=== PATIENT | female | born 1960 | race Hispanic/Latino ===

== ENCOUNTER → 2023-03-02 | Day surgery (SDC) | payer BC ==
[~2023-03-02] MED LIST: ATORVASTATIN CA40 MG PO; CLARITIN-D 241 EACH PO; CYMBALTA30 MG PO; HYDROCHLOROTHIA25 MG PO; LACTATED RINGER'S 1,000 ML ONE; LIDOCAINE HCL 2% LOCAL INJ 5 ML SDV VIAL INJ ONE; LOSARTAN POTAS100 MG PO; LOSARTAN-HCTZ1 EAC2 PO; METFORMIN HCL500 MG PO; MIDAZOLAM HCL 2 MG/2 ML VIAL ONE; PANTOPRAZOLE SO40 MG PO; PROPOFOL IV EMULSION 10 MG/ML 20 ML VIAL ONE; VITAMIN D PO; VITAMIN D310 MCG PO
[2023-03-02 12:05] VITALS: TEMP 97.8
[2023-03-02 12:20] VITALS: BP 118/74; PULSE 67; RESP 16; O2SAT 100
== END | disposition home or self-care (01) ==
LOC: OR 08:32
PROVIDERS: ATTEND Internal Medicine Gastroenterology
DX: Z12.11 Encounter for screening for malignant neoplasm of colon (principal); Z86.010 Personal history of colon polyps; K29.50 Unspecified chronic gastritis without bleeding; B96.81 Helicobacter pylori [H. pylori] as the cause of diseases classified elsewhere; K31.819 Angiodysplasia of stomach and duodenum without bleeding; K21.9 Gastro-esophageal reflux disease without esophagitis; K44.9 Diaphragmatic hernia without obstruction or gangrene; K57.30 Diverticulosis of large intestine without perforation or abscess without bleeding; K62.89 Other specified diseases of anus and rectum; K59.00 Constipation, unspecified; K64.8 Other hemorrhoids; D64.9 Anemia, unspecified; I10 Essential (primary) hypertension; E78.5 Hyperlipidemia, unspecified; F32.A Depression, unspecified; E11.9 Type 2 diabetes mellitus without complications; F17.200 Nicotine dependence, unspecified, uncomplicated; Z01.810 Encounter for preprocedural cardiovascular examination; Z79.899 Other long term (current) drug therapy; Z80.0 Family history of malignant neoplasm of digestive organs
CPT/HCPCS: 36415; 43239; 45378; 82948; 93005; J2001; J2250; J2704; J7121

== ENCOUNTER → 2023-03-21 | Outpatient (CLI) | payer BC ==
[~2023-03-21] MED LIST changes: -LACTATED RINGER'S 1,000 ML ONE; -LIDOCAINE HCL 2% LOCAL INJ 5 ML SDV VIAL INJ ONE; -MIDAZOLAM HCL 2 MG/2 ML VIAL ONE; -PROPOFOL IV EMULSION 10 MG/ML 20 ML VIAL ONE
== END ==
LOC: MAMMO 14:08
PROVIDERS: ATTEND Family Medicine
DX: Z12.31 Encounter for screening mammogram for malignant neoplasm of breast (principal); M85.88 Other specified disorders of bone density and structure, other site; Z78.0 Asymptomatic menopausal state
CPT/HCPCS: 77067; 77080

== ENCOUNTER 2024-08-29 05:51 | Day surgery (SDC) | payer BC ==
[2024-08-25 09:52] LABS: BASOPHILS % 0.7 % (0.0-1.0); EOSINOPHILS # (AUTO) 0.3 (0.0-0.4); EOSINOPHILS % 5.3 % (0.0-6.0); LYMPHOCYTES # (AUTO) 1.4 (1.0-3.2); LYMPHOCYTES % 25.5 % (18.0-39.1); MEAN CORPUSCULAR HEMOGLOBIN 24.8 pg (28-32); MEAN CORPUSCULAR HGB CONC 27.3 g/dL (31-35); MEAN CORPUSCULAR VOLUME 90.9 fL (81-99); MONOCYTES # (AUTO) 0.6 (0.2-0.8); MONOCYTES % 10.3 % (4.4-11.3); NEUTROPHILS # (AUTO) 3.2 (2.1-6.9); NEUTROPHILS % 57.8 % (38.7-80.0); PLATELET COUNT 407 x10e3/uL (140-360); RED BLOOD COUNT 3.63 x10e6/uL (3.6-5.1); RED CELL DISTRIBUTION WIDTH 15.3 % (11.7-14.4); WHITE BLOOD COUNT 5.45 x10e3/uL (4.8-10.8)
[2024-08-25 10:15] LABS: ALBUMIN 3.8 g/dL (3.5-5.0); ALBUMIN/GLOBULIN RATIO 1.2 (0.8-2.0); ANION GAP 14.3 mmol/L (8-16); BILIRUBIN,TOTAL 0.2 mg/dL (0.2-1.2); CALCIUM 9.3 mg/dL (8.4-10.2); CREATININE, SERUM 0.65 mg/dL (0.57-1.11); POTASSIUM 4.3 mmol/L (3.5-5.1)
[2024-08-25 16:35] LABS: CHOL/HDL RATIO 3.9 (3.0-3.6)
[2024-08-29] VITALS (17 sets, daily range): BP systolic 134–157; BP diastolic 52–70; PULSE 57–73; RESP 10–20; TEMP 96.1; O2SAT 96–99
[~2024-08-29] VITALS: Ht 167.6 cm; Wt 79.8 kg
[~2024-08-29 05:51] MED LIST changes: +FERROUS SU300 MG/51 PO; +JANUVIA100 MG PO; +LOSARTAN-HCTZ1 EAC1; +METFORMIN HCL1000 MG; +METOPROLOL SUCC50 MG PO; +PANTOPRAZOLE SO40 M2 PO
[2024-08-29] MEDS ORDERED: HEPARIN SOD/SOD CHLORIDE 2,000 ML ONE (08:09)
[2024-08-29] MEDS ORDERED: LIDOCAINE HCL 2% LOCAL 20 ML VIAL ONE (08:09)
[2024-08-29] MEDS ORDERED: HEPARIN SOD (PORCINE) 1000 UNIT/ML 30ML ONE (08:09)
[2024-08-29] MEDS ORDERED: IOPAMIDOL 370 MG/ML 100 ML INFUS..BTL INJ ONE (08:10)
[2024-08-29] MEDS ORDERED: SODIUM CHLORIDE 0.9% 1000ML 1,000 ML ONE (08:10)
[2024-08-29] MEDS ORDERED: NITROGLYCERIN/D5W 200 MCG/ML 250 ML ONE (08:10)
[2024-08-29] MEDS ORDERED: MIDAZOLAM HCL 2 MG/2 ML VIAL ONE ×2 (08:11→08:48)
[2024-08-29] MEDS ORDERED: VERAPAMIL HCL 2.5 MG/ML 2 ML VIAL ONE (08:11)
[2024-08-29] MEDS ORDERED: FENTANYL CITRATE/PF 100MCG/2 ML INJ ONE (08:12)
== END 2024-08-29 14:10 | disposition home or self-care (01) ==
LOC: CATH LAB 05:51
PROVIDERS: ATTEND Internal Medicine
DX: I25.118 Atherosclerotic heart disease of native coronary artery with other forms of angina pectoris (principal); R94.39 Abnormal result of other cardiovascular function study; I87.2 Venous insufficiency (chronic) (peripheral); I10 Essential (primary) hypertension; E78.5 Hyperlipidemia, unspecified; E11.9 Type 2 diabetes mellitus without complications; Z01.812 Encounter for preprocedural laboratory examination; Z79.84 Long term (current) use of oral hypoglycemic drugs; Z79.899 Other long term (current) drug therapy; Z68.41 Body mass index [BMI] 40.0-44.9, adult; Z82.49 Family history of ischemic heart disease and other diseases of the circulatory system; Z83.3 Family history of diabetes mellitus
CPT/HCPCS: 36415 ×2; 76937; 80053; 80061; 82948; 85025; 93458; C1760; C1769 ×2; C1887 ×3; J1644; J2003; J2250; J3010; J7030; Q9967; 99152; 99153

== ENCOUNTER 2024-09-25 10:47 | Inpatient (IN) | payer BC ==
[~2024-09-25] VITALS: Ht 167.6 cm; Wt 84.4 kg
[~2024-09-25 10:47] MED LIST changes: -LOSARTAN-HCTZ1 EAC1; +LOSARTAN-HCTZ1 EAC1 PO; -METFORMIN HCL1000 MG; +METFORMIN HCL1000 MG PO
[2024-09-25 11:41] LABS: ANION GAP 14.1 mmol/L (8-16); CALCIUM 8.9 mg/dL (8.4-10.2); CREATININE, SERUM 0.86 mg/dL (0.57-1.11); POTASSIUM 4.1 mmol/L (3.5-5.1)
[2024-09-25 11:47] LABS: TROPONIN I 0.005 ng/mL (0-0.300)
[2024-09-25 12:04] LABS: BASOPHILS # (AUTO) 0.1 (0.0-0.1); BASOPHILS % 0.9 % (0.0-1.0); EOSINOPHILS # (AUTO) 0.2 (0.0-0.4); EOSINOPHILS % 3.5 % (0.0-6.0); HEMATOCRIT 24.1 % (34.2-44.1); LYMPHOCYTES # (AUTO) 0.9 (1.0-3.2); LYMPHOCYTES % 15.8 % (18.0-39.1); MEAN CORPUSCULAR HEMOGLOBIN 24.6 pg (28-32); MEAN CORPUSCULAR HGB CONC 26.6 g/dL (31-35); MEAN CORPUSCULAR VOLUME 92.7 fL (81-99); MONOCYTES # (AUTO) 0.5 (0.2-0.8); MONOCYTES % 8.9 % (4.4-11.3); NEUTROPHILS # (AUTO) 3.8 (2.1-6.9); NEUTROPHILS % 70.5 % (38.7-80.0); PLATELET COUNT 380 x10e3/uL (140-360); RED CELL DISTRIBUTION WIDTH 15.1 % (11.7-14.4); WHITE BLOOD COUNT 5.38 x10e3/uL (4.8-10.8)
[2024-09-25 12:08] LABS: HEMOGLOBIN 6.4 g/dL (12.0-16.0)
[2024-09-25 12:58] VITALS: PULSE 71; RESP 16
[2024-09-25] MEDS ORDERED: ISOSORBIDE MONO30 MG PO (13:39)
[2024-09-25] MEDS ORDERED: FEROSUL325 MG PO (13:39)
[2024-09-25] MEDS ORDERED: VITAMIN D3125 MCG/1 PO (13:39)
[2024-09-25] MEDS ORDERED: RANOLAZINE ER1000 MG PO (13:39)
[2024-09-25 14:48] VITALS: TEMP 98.4
[2024-09-25 14:48] LABS: FERRITIN 18.29 ng/mL (4.63-204.00)
[2024-09-25 14:54] VITALS: BP 169/67; PULSE 71; RESP 18; TEMP 98.4; O2SAT 99
[2024-09-25] MEDS ORDERED: DEXTROSE 50% SYRINGE 50 ML IV PRN (18:00)
[2024-09-25 18:26] VITALS: BP 175/79; PULSE 72; RESP 18; TEMP 98.5; O2SAT 100
[2024-09-25] MEDS: HYDRALAZINE HCL 20 MG/ML VIAL IV PRN (18:45)
[2024-09-25 20:00] VITALS: BP 161/62; PULSE 82; RESP 18; TEMP 98.5; O2SAT 100
[2024-09-25] MEDS: INSULIN LISPRO 100 UNIT/1 ML 3ML VIAL SQ SCH (20:55)
[2024-09-25 21:00] VITALS: BP 161/62; PULSE 82; RESP 18; TEMP 98.5; O2SAT 100
[2024-09-26] VITALS (8 sets, daily range): BP systolic 143–165; BP diastolic 54–69; PULSE 65–85; RESP 18–22; TEMP 97.9–98.5; O2SAT 99–100
[2024-09-26] MEDS: SODIUM CHLORIDE 0.9% 250ML 250 ML IV ONE (09:00)
[2024-09-26] MEDS: SODIUM CHLORIDE 0.9% 250ML 250 ML ONE (09:00)
[2024-09-26] MEDS: PANTOPRAZOLE SODIUM 40 MG SUSPDR.PKT PO SCH (09:40)
[2024-09-26] MEDS: METOPROLOL SUCCINATE 50 MG TAB XL PO SCH (09:42)
[2024-09-26] MEDS: ISOSORBIDE MONONITRATE 30 MG TAB CR PO SCH (09:42)
[2024-09-26] MEDS: HYDROCHLOROTHIAZIDE 25 MG TAB PO SCH (09:42)
[2024-09-26] MEDS: DULOXETINE HCL 30 MG DELAYED RELEASE PO SCH (09:42)
[2024-09-26] MEDS: FERROUS SULFATE 325 MG TAB PO SCH (09:42)
[2024-09-26] MEDS: LOSARTAN POTASSIUM 100 MG TAB PO SCH (09:43)
[2024-09-26 10:34] LABS: BASOPHILS % 0.8 % (0.0-1.0); EOSINOPHILS # (AUTO) 0.2 (0.0-0.4); EOSINOPHILS % 3.6 % (0.0-6.0); HEMATOCRIT 33.5 % (34.2-44.1); HEMOGLOBIN 9.7 g/dL (12.0-16.0); LYMPHOCYTES # (AUTO) 0.8 (1.0-3.2); LYMPHOCYTES % 15.4 % (18.0-39.1); MEAN CORPUSCULAR VOLUME 89.8 fL (81-99); MONOCYTES # (AUTO) 0.4 (0.2-0.8); MONOCYTES % 6.9 % (4.4-11.3); NEUTROPHILS # (AUTO) 3.8 (2.1-6.9); NEUTROPHILS % 73.1 % (38.7-80.0); PLATELET COUNT 307 x10e3/uL (140-360); RED BLOOD COUNT 3.73 x10e6/uL (3.6-5.1); WHITE BLOOD COUNT 5.25 x10e3/uL (4.8-10.8)
[2024-09-26 11:19] LABS: ALBUMIN 3.3 g/dL (3.5-5.0); ALBUMIN/GLOBULIN RATIO 1.1 (0.8-2.0); ANION GAP 14.2 mmol/L (8-16); BILIRUBIN,TOTAL 0.5 mg/dL (0.2-1.2); CALCIUM 9.2 mg/dL (8.4-10.2); CREATININE, SERUM 0.67 mg/dL (0.57-1.11); POTASSIUM 4.2 mmol/L (3.5-5.1); TOTAL PROTEIN 6.3 g/dL (6.5-8.1)
[2024-09-26] MEDS ORDERED: LIDOCAINE HCL 2% LOCAL INJ 5 ML SDV VIAL INJ ONE (18:46)
[2024-09-26] MEDS ORDERED: FENTANYL CITRATE/PF 100MCG/2 ML INJ ONE (18:46)
[2024-09-26] MEDS ORDERED: MIDAZOLAM HCL 2 MG/2 ML VIAL ONE (18:47)
[2024-09-26] MEDS ORDERED: PROPOFOL IV EMULSION 10 MG/ML 20 ML VIAL ONE ×2 (18:48→19:37)
[2024-09-26] MEDS: ONDANSETRON HCL INJ 2MG/ML 2ML 2 MG/ML VIAL IV PRN (21:39)
[2024-09-26] MEDS: Morphine 4mg INJECTION 4 MG/ML INJ IV PRN (21:43)
[2024-09-27 00:45] VITALS: BP 166/69; PULSE 64; RESP 18; TEMP 98.3; O2SAT 99
[2024-09-27 01:35] LABS: HEMATOCRIT 33.5 % (34.2-44.1); HEMOGLOBIN 9.7 g/dL (12.0-16.0)
[2024-09-27 04:00] VITALS: BP 136/58; PULSE 76; RESP 17; TEMP 98.1; O2SAT 95
[2024-09-27 06:27] LABS: BASOPHILS % 0.7 % (0.0-1.0); EOSINOPHILS # (AUTO) 0.3 (0.0-0.4); EOSINOPHILS % 6.4 % (0.0-6.0); HEMATOCRIT 33.8 % (34.2-44.1); LYMPHOCYTES # (AUTO) 0.8 (1.0-3.2); LYMPHOCYTES % 19.6 % (18.0-39.1); MEAN CORPUSCULAR HEMOGLOBIN 25.5 pg (28-32); MEAN CORPUSCULAR HGB CONC 29.6 g/dL (31-35); MEAN CORPUSCULAR VOLUME 86.2 fL (81-99); MONOCYTES # (AUTO) 0.4 (0.2-0.8); MONOCYTES % 10.8 % (4.4-11.3); NEUTROPHILS # (AUTO) 2.6 (2.1-6.9); NEUTROPHILS % 62.3 % (38.7-80.0); PLATELET COUNT 320 x10e3/uL (140-360); RED BLOOD COUNT 3.92 x10e6/uL (3.6-5.1); RED CELL DISTRIBUTION WIDTH 14.7 % (11.7-14.4); WHITE BLOOD COUNT 4.09 x10e3/uL (4.8-10.8)
[2024-09-27 06:33] LABS: CALCIUM 9.1 mg/dL (8.4-10.2); CREATININE, SERUM 0.68 mg/dL (0.57-1.11); MAGNESIUM 1.7 MG/DL (1.3-2.1)
[2024-09-27 07:55] VITALS: BP 136/58; PULSE 76; RESP 17; TEMP 98.1; O2SAT 95
[2024-09-27] MEDS: ACETAMINOPHEN 325 MG TAB PO PRN (08:11)
[2024-09-27 08:51] VITALS: BP 127/74; PULSE 90; RESP 19; TEMP 99; O2SAT 95
[2024-09-27 12:39] VITALS: BP 139/62; PULSE 65; RESP 20; TEMP 97.7; O2SAT 98
[2024-09-27 15:43] LABS: HEMATOCRIT 36.3 % (34.2-44.1); HEMOGLOBIN 10.4 g/dL (12.0-16.0)
[2024-09-27 16:39] VITALS: BP 128/68; PULSE 72; RESP 19; TEMP 98.5; O2SAT 98
[2024-09-27] MEDS ORDERED: PANTOPRAZOLE SO40 M2 PO (16:40)
[2024-09-27] MEDS ORDERED: ONDANSETRON HCL 4 MG ORAL DISINTEGRATING TAB PO PRN (17:00)
== END 2024-09-27 17:48 | disposition home or self-care (01) | DRG 378 ==
LOC: ER 11:17 → ERHOLD 12:44 → MED/SURG2 13:30 → OBSVTOIN 09-26 11:08
PROVIDERS: ADMIT Internal Medicine; ATTEND Internal Medicine
PROC: 30233N1 Transfusion of Nonautologous Red Blood Cells into Peripheral Vein, Percutaneous Approach (ICD-10-PCS; 2024-09-25)
PROC: 0DB68ZX Excision of Stomach, Via Natural or Artificial Opening Endoscopic, Diagnostic (ICD-10-PCS; 2024-09-26)
PROC: 0DB78ZX Excision of Stomach, Pylorus, Via Natural or Artificial Opening Endoscopic, Diagnostic (ICD-10-PCS; 2024-09-26)
PROC: 0DB98ZX Excision of Duodenum, Via Natural or Artificial Opening Endoscopic, Diagnostic (ICD-10-PCS; 2024-09-26)
PROC: 0W3P8ZZ Control Bleeding in Gastrointestinal Tract, Via Natural or Artificial Opening Endoscopic (ICD-10-PCS; principal; 2024-09-26 19:22)
DX: K31.82 Dieulafoy lesion (hemorrhagic) of stomach and duodenum (principal); D62 Acute posthemorrhagic anemia; K44.9 Diaphragmatic hernia without obstruction or gangrene; D50.9 Iron deficiency anemia, unspecified; E11.9 Type 2 diabetes mellitus without complications; E78.2 Mixed hyperlipidemia; K29.70 Gastritis, unspecified, without bleeding; I10 Essential (primary) hypertension; I25.10 Atherosclerotic heart disease of native coronary artery without angina pectoris; K64.8 Other hemorrhoids; E66.811 Obesity, class 1; Z68.30 Body mass index [BMI] 30.0-30.9, adult; Z79.84 Long term (current) use of oral hypoglycemic drugs; Z79.85 Long-term (current) use of injectable non-insulin antidiabetic drugs; Z90.49 Acquired absence of other specified parts of digestive tract; Z90.711 Acquired absence of uterus with remaining cervical stump; Z87.891 Personal history of nicotine dependence
CPT/HCPCS: 36415; 43239; 71046; 80048; 80053; 82270; 82550; 82607; 82728; 82746; 82948; 83036; 83540; 83735; 84466; 84484; 85014; 85018; 85025; 85045; 86850; 86900; 86920; 88305; 93005; 96372; 99284; G0378; J0360; J2003; J2250; J2270; J2405; J7050; P9016

== ENCOUNTER 2025-04-01 09:47 | Inpatient (IN) | payer BC ==
[2025-04-01] VITALS (7 sets, daily range): BP systolic 122–132; BP diastolic 52–67; PULSE 71–85; RESP 18; TEMP 97.2–98.5; O2SAT 94–100
[~2025-04-01] VITALS: Ht 167.6 cm; Wt 78.9 kg
[~2025-04-01 09:47] MED LIST changes: +FEROSUL325 MG PO; +ISOSORBIDE MONO30 MG PO; +RANOLAZINE ER1000 MG PO; +VITAMIN D3125 MCG/1 PO
[2025-04-01 10:44] LABS: BASOPHILS # (AUTO) 0.1 (0.0-0.1); BASOPHILS % 0.7 % (0.0-1.0); EOSINOPHILS # (AUTO) 0.2 (0.0-0.4); EOSINOPHILS % 3.4 % (0.0-6.0); HEMATOCRIT 24.5 % (34.2-44.1); LYMPHOCYTES # (AUTO) 1.9 (1.0-3.2); LYMPHOCYTES % 26.5 % (18.0-39.1); MEAN CORPUSCULAR HEMOGLOBIN 27.3 pg (28-32); MEAN CORPUSCULAR HGB CONC 30.6 g/dL (31-35); MEAN CORPUSCULAR VOLUME 89.1 fL (81-99); MONOCYTES # (AUTO) 0.5 (0.2-0.8); MONOCYTES % 7.2 % (4.4-11.3); NEUTROPHILS # (AUTO) 4.4 (2.1-6.9); NEUTROPHILS % 61.4 % (38.7-80.0); PLATELET COUNT 340 x10e3/uL (140-360); RED BLOOD COUNT 2.75 x10e6/uL (3.6-5.1); RED CELL DISTRIBUTION WIDTH 13.6 % (11.7-14.4)
[2025-04-01] MEDS: SODIUM CHLORIDE 0.9% 1000ML 1,000 ML IV ONE (10:46)
[2025-04-01 10:53] LABS: HEMOGLOBIN 7.5 g/dL (12.0-16.0)
[2025-04-01 10:57] LABS: INR 0.86; PARTIAL THROMBOPLASTIN TIME 25.2 seconds (23.8-35.5); PROTHROMBIN TIME 12.5 seconds (11.9-14.5)
[2025-04-01 11:18] LABS: ALBUMIN 3.4 g/dL (3.5-5.0); ALBUMIN/GLOBULIN RATIO 1.2 (0.8-2.0); ANION GAP 15.7 mmol/L (8-16); BILIRUBIN,TOTAL 0.1 mg/dL (0.2-1.2); CREATININE, SERUM 0.71 mg/dL (0.57-1.11); POTASSIUM 3.7 mmol/L (3.5-5.1); TOTAL PROTEIN 6.2 g/dL (6.5-8.1)
[2025-04-01] MEDS: SODIUM CHLORIDE 0.9% 1000ML 1,000 ML IV SCH (13:02)
[2025-04-01] MEDS: SODIUM CHLORIDE 0.9% 250ML 250 ML IV ONE (13:44)
[2025-04-01 14:47] LABS: HEMOGLOBIN 6.8 g/dL (12.0-16.0)
[2025-04-01 14:48] LABS: HEMATOCRIT 22.3 % (34.2-44.1)
[2025-04-01] MEDS ORDERED: ALBUTEROL/IPRATROPIUM 3 ML NEB NEB PRN (15:00)
[2025-04-01] MEDS ORDERED: POTASSIUM CHLORIDE 20 MEQ TAB CR PO PRN (15:00)
[2025-04-01] MEDS ORDERED: SIMETHICONE 80 MG CHEW PO PRN (15:00)
[2025-04-01] MEDS ORDERED: BENZONATATE 100 MG CAP PO PRN (15:00)
[2025-04-01] MEDS ORDERED: DIPHENHYDRAMINE HCL 25 MG CAP PO PRN (15:00)
[2025-04-01] MEDS ORDERED: DEXTROSE 50% SYRINGE 50 ML IV PRN (15:00)
[2025-04-01] MEDS ORDERED: LIDOCAINE 4% PATCH TP PRN (15:00)
[2025-04-01] MEDS ORDERED: HYDRALAZINE HCL 20 MG/ML VIAL IV PRN (15:00)
[2025-04-01] MEDS ORDERED: CHLORASEPTIC SPRAY 177 ML BTL MM PRN (15:00)
[2025-04-01] MEDS ORDERED: DOCUSATE SODIUM 100 MG CAP PO PRN (15:00)
[2025-04-01 15:09] LABS: % IRON SATURATION 68 % (15-50); IRON 323 ug/dL (50-170); TOTAL IRON BINDING CAPACITY 476 ug/dL (261-478); TRANSFERRIN 340 mg/dL (180-382)
[2025-04-01] MEDS: DEXTROSE 5%/0.9% SOD CHL 1,000 ML IV SCH (17:00)
[2025-04-01] MEDS ORDERED: PROTONIX20 MG PO (18:14)
[2025-04-01] MEDS ORDERED: SIMVASTATIN20 MG PO (18:16)
[2025-04-01] MEDS ORDERED: MELATONIN 5 MG TABLET PO PRN (21:00)
[2025-04-02] VITALS (10 sets, daily range): BP systolic 121–163; BP diastolic 49–76; PULSE 75–101; RESP 16–19; TEMP 97.1–98.2; O2SAT 95–100
[2025-04-02] MEDS: SODIUM CHLORIDE 0.9% 250ML 250 ML ONE (00:04)
[2025-04-02 07:52] LABS: ALBUMIN 2.9 g/dL (3.5-5.0); ALBUMIN/GLOBULIN RATIO 1.3 (0.8-2.0); ANION GAP 11.4 mmol/L (8-16); BILIRUBIN,TOTAL 0.4 mg/dL (0.2-1.2); CREATININE, SERUM 0.58 mg/dL (0.57-1.11); MAGNESIUM 1.4 MG/DL (1.3-2.1); TOTAL PROTEIN 5.2 g/dL (6.5-8.1)
[2025-04-02 08:01] LABS: POTASSIUM 3.4 mmol/L (3.5-5.1)
[2025-04-02 08:14] LABS: FERRITIN 26.41 ng/mL (4.63-204.00)
[2025-04-02] MEDS ORDERED: IOPAMIDOL 370 MG/ML 100 ML INFUS..BTL INJ ONE (10:17)
[2025-04-02 10:39] LABS: BASOPHILS % 0.5 % (0.0-1.0); EOSINOPHILS # (AUTO) 0.2 (0.0-0.4); EOSINOPHILS % 2.3 % (0.0-6.0); HEMATOCRIT 28.4 % (34.2-44.1); HEMOGLOBIN 9.2 g/dL (12.0-16.0); LYMPHOCYTES % 15.2 % (18.0-39.1); MEAN CORPUSCULAR HEMOGLOBIN 29.3 pg (28-32); MEAN CORPUSCULAR HGB CONC 32.4 g/dL (31-35); MEAN CORPUSCULAR VOLUME 90.4 fL (81-99); MONOCYTES # (AUTO) 0.5 (0.2-0.8); MONOCYTES % 7.5 % (4.4-11.3); NEUTROPHILS # (AUTO) 4.8 (2.1-6.9); PLATELET COUNT 248 x10e3/uL (140-360); RED BLOOD COUNT 3.14 x10e6/uL (3.6-5.1); WHITE BLOOD COUNT 6.44 x10e3/uL (4.8-10.8)
[2025-04-02] MEDS: DULOXETINE HCL 30 MG DELAYED RELEASE PO SCH (11:18)
[2025-04-02 13:20] LABS: HEMATOCRIT 27.9 % (34.2-44.1); HEMOGLOBIN 9.1 g/dL (12.0-16.0)
[2025-04-02] MEDS: CITRATE OF MAGNESIA 300ML BOTTLE PO ONE (18:18)
[2025-04-02] MEDS: ONDANSETRON HCL INJ 2MG/ML 2ML 2 MG/ML VIAL IV PRN (20:12)
[2025-04-02] MEDS: SIMVASTATIN 20 MG TAB PO SCH (21:30)
[2025-04-03] VITALS (12 sets, daily range): BP systolic 130–161; BP diastolic 44–91; PULSE 79–107; RESP 16–20; TEMP 97.1–98.7; O2SAT 95–99
[2025-04-03] MEDS: ACETAMINOPHEN 325 MG TAB PO PRN (00:55)
[2025-04-03 06:12] LABS: ANION GAP 10.4 mmol/L (8-16); CARBON DIOXIDE 24 mmol/L (22-29); CHLORIDE 109 mmol/L (98-107); CREATININE, SERUM 0.53 mg/dL (0.57-1.11); EST GLOMERULAR FILTRATION RATE 103 ML/MIN (>=60); GLUCOSE 160 mg/dL (74-118); SODIUM 140 mmol/L (136-145)
[2025-04-03 06:20] LABS: POTASSIUM 3.4 mmol/L (3.5-5.1)
[2025-04-03 06:32] LABS: BLOOD UREA NITROGEN < 5 mg/dL (7-26); CALCIUM 7.8 mg/dL (8.4-10.2)
[2025-04-03 06:33] LABS: BUN/CREATININE RATIO 9 (6-25)
[2025-04-03 06:50] LABS: BASOPHILS % 0.4 % (0.0-1.0); EOSINOPHILS # (AUTO) 0.1 (0.0-0.4); EOSINOPHILS % 2.4 % (0.0-6.0); HEMATOCRIT 23.7 % (34.2-44.1); LYMPHOCYTES # (AUTO) 0.8 (1.0-3.2); LYMPHOCYTES % 16.2 % (18.0-39.1); MEAN CORPUSCULAR HEMOGLOBIN 29.1 pg (28-32); MEAN CORPUSCULAR HGB CONC 31.6 g/dL (31-35); MEAN CORPUSCULAR VOLUME 91.9 fL (81-99); MONOCYTES # (AUTO) 0.5 (0.2-0.8); NEUTROPHILS # (AUTO) 3.6 (2.1-6.9); NEUTROPHILS % 71.6 % (38.7-80.0); PLATELET COUNT 191 x10e3/uL (140-360); RED BLOOD COUNT 2.58 x10e6/uL (3.6-5.1); RED CELL DISTRIBUTION WIDTH 14.6 % (11.7-14.4)
[2025-04-03 06:53] LABS: HEMOGLOBIN 7.5 g/dL (12.0-16.0)
[2025-04-03] MEDS ORDERED: DEXTROSE 50% SYRINGE 50 ML IV PRN (11:30)
[2025-04-03] MEDS: INSULIN LISPRO 100 UNIT/1 ML 3ML VIAL SQ SCH (11:48)
[2025-04-03 16:27] LABS: HEMATOCRIT 28.1 % (34.2-44.1); HEMOGLOBIN 8.9 g/dL (12.0-16.0)
[2025-04-03] MEDS: CITRATE OF MAGNESIA 300ML BOTTLE PO STA (18:52)
[2025-04-04] VITALS (9 sets, daily range): BP systolic 112–148; BP diastolic 51–59; PULSE 84–105; RESP 17–20; TEMP 97.7–99.3; O2SAT 97–100
[2025-04-04 07:13] LABS: ANION GAP 13.6 mmol/L (8-16); BLOOD UREA NITROGEN < 5 mg/dL (7-26); CALCIUM 7.9 mg/dL (8.4-10.2); CARBON DIOXIDE 24 mmol/L (22-29); CHLORIDE 106 mmol/L (98-107); CREATININE, SERUM 0.61 mg/dL (0.57-1.11); EST GLOMERULAR FILTRATION RATE 99 ML/MIN (>=60); GLUCOSE 216 mg/dL (74-118); POTASSIUM 3.6 mmol/L (3.5-5.1); SODIUM 140 mmol/L (136-145)
[2025-04-04 07:26] LABS: BUN/CREATININE RATIO 8 (6-25)
[2025-04-04] MEDS: MINERAL OIL 132 ML BTL PR ONE (07:57)
[2025-04-04 08:14] LABS: BASOPHILS % 0.3 % (0.0-1.0); EOSINOPHILS # (AUTO) 0.1 (0.0-0.4); EOSINOPHILS % 1.9 % (0.0-6.0); LYMPHOCYTES # (AUTO) 0.7 (1.0-3.2); LYMPHOCYTES % 11.6 % (18.0-39.1); MEAN CORPUSCULAR HEMOGLOBIN 29.4 pg (28-32); MEAN CORPUSCULAR HGB CONC 32.3 g/dL (31-35); MEAN CORPUSCULAR VOLUME 91.1 fL (81-99); MONOCYTES # (AUTO) 0.5 (0.2-0.8); MONOCYTES % 8.5 % (4.4-11.3); NEUTROPHILS # (AUTO) 4.8 (2.1-6.9); NEUTROPHILS % 77.1 % (38.7-80.0); PLATELET COUNT 276 x10e3/uL (140-360); RED BLOOD COUNT 2.48 x10e6/uL (3.6-5.1); RED CELL DISTRIBUTION WIDTH 14.6 % (11.7-14.4); WHITE BLOOD COUNT 6.22 x10e3/uL (4.8-10.8)
[2025-04-04 08:19] LABS: HEMOGLOBIN 7.3 g/dL (12.0-16.0)
[2025-04-04] MEDS ORDERED: PROPOFOL IV EMULSION 10 MG/ML 20 ML VIAL ONE (13:33)
[2025-04-04] MEDS ORDERED: LIDOCAINE HCL 2% LOCAL INJ 5 ML SDV VIAL INJ ONE (13:33)
[2025-04-04] MEDS ORDERED: MIDAZOLAM HCL 2 MG/2 ML VIAL ONE (13:33)
[2025-04-04] MEDS: SODIUM CHLORIDE 0.9% 250ML 250 ML IV ONE (19:56)
[2025-04-05] MEDS ORDERED: SODIUM CHLORIDE 0.9% 250ML 250 ML ONE ×2 (02:07→21:09)
[2025-04-05 06:05] VITALS: PULSE 75; RESP 22; O2SAT 95
[2025-04-05 07:40] VITALS: BP 137/70; PULSE 52; RESP 18; TEMP 98.5; O2SAT 95
[2025-04-05 09:00] VITALS: BP 137/70; PULSE 52; RESP 18; TEMP 98.5; O2SAT 95
[2025-04-05 11:40] VITALS: BP 125/54; PULSE 88; RESP 17; TEMP 98.3; O2SAT 100
[2025-04-05 13:25] LABS: HEMOGLOBIN 8.3 g/dL (12.0-16.0)
[2025-04-05 13:43] LABS: ANION GAP 12.8 mmol/L (8-16); CALCIUM 8.1 mg/dL (8.4-10.2); CREATININE, SERUM 0.67 mg/dL (0.57-1.11); POTASSIUM 3.8 mmol/L (3.5-5.1)
[2025-04-05] MEDS ORDERED: SODIUM CHLORIDE 0.9% 250ML 250 ML IV ONE (14:30)
[2025-04-05] MEDS ORDERED: PANTOPRAZOLE SO40 MG PO (15:33)
[2025-04-05 15:36] VITALS: BP 134/61; PULSE 80; RESP 19; TEMP 97.6; O2SAT 97
[2025-04-05 23:12] VITALS: BP 129/54; PULSE 88; RESP 17; TEMP 97.6; O2SAT 98
[2025-04-06 07:41] VITALS: PULSE 80; RESP 18; O2SAT 98
[2025-04-06 08:00] VITALS: BP 151/86; PULSE 78; RESP 20; TEMP 98.2; O2SAT 100
[2025-04-06 08:03] LABS: HEMATOCRIT 31.3 % (34.2-44.1)
[2025-04-06 09:30] VITALS: BP 151/86; PULSE 78; RESP 20; TEMP 98.2; O2SAT 100
== END 2025-04-06 12:30 | disposition home or self-care (01) | DRG 812 ==
LOC: ER 09:53 → ERHOLD 12:03 → OBSVTOIN 16:50 → MED/SURG 18:00
PROVIDERS: ADMIT Internal Medicine; ATTEND Internal Medicine
PROC: 30233N1 Transfusion of Nonautologous Red Blood Cells into Peripheral Vein, Percutaneous Approach (ICD-10-PCS; principal; 2025-04-02)
PROC: 0DB68ZX Excision of Stomach, Via Natural or Artificial Opening Endoscopic, Diagnostic (ICD-10-PCS; 2025-04-04)
PROC: 0DJD8ZZ Inspection of Lower Intestinal Tract, Via Natural or Artificial Opening Endoscopic (ICD-10-PCS; 2025-04-04)
PROC: 0DB98ZX Excision of Duodenum, Via Natural or Artificial Opening Endoscopic, Diagnostic (ICD-10-PCS; 2025-04-04 14:08)
DX: D50.9 Iron deficiency anemia, unspecified (principal); I10 Essential (primary) hypertension; I25.10 Atherosclerotic heart disease of native coronary artery without angina pectoris; E78.00 Pure hypercholesterolemia, unspecified; E11.8 Type 2 diabetes mellitus with unspecified complications; K64.8 Other hemorrhoids; K59.00 Constipation, unspecified; F32.A Depression, unspecified; K44.9 Diaphragmatic hernia without obstruction or gangrene; K57.30 Diverticulosis of large intestine without perforation or abscess without bleeding; K29.70 Gastritis, unspecified, without bleeding; Z79.84 Long term (current) use of oral hypoglycemic drugs; Z87.891 Personal history of nicotine dependence; Z80.0 Family history of malignant neoplasm of digestive organs
CPT/HCPCS: 36415; 36568; 43239; 45330; 74174; 80048; 80053; 82550; 82728; 82948; 83540; 83735; 84466; 85014; 85018; 85025; 85610; 85730; 86850; 86900; 86920; 88305; 88342; 94799; 99284; J2003; J2250; J2405; J2470; J7030; J7042; J7050; P9016; Q9967